=== PATIENT | female | born 1945 | race Two or more races ===

== ENCOUNTER 2019-02-15 08:19 | Outpatient (CLI) | payer OTHER | END 2019-02-15 08:25 | disposition home or self-care (01) | LOC: SONOGRAMA 08:19 | DX: E04.1 Nontoxic single thyroid nodule (principal) ==

== ENCOUNTER 2021-11-02 12:08 | Outpatient (CLI) | payer OTHER | END 2021-11-02 12:09 | disposition home or self-care (01) | LOC: NUCLEAR 12:08 | PROVIDERS: ATTEND Internal Medicine Sports Medicine | DX: C73 Malignant neoplasm of thyroid gland (principal) | CPT/HCPCS: 78012; A9531 ==